=== PATIENT | male | born 2005 | race Hispanic/Latino ===

== ENCOUNTER 2024-09-20 09:26 | Emergency (ER) | payer OTHER ==
[~2024-09-20] VITALS: Ht 167.6 cm; Wt 100.0 kg
[~2024-09-20 09:26] MED LIST: CENTANY30 GM TOP; CEPHALEXIN500 M1 PO
[2024-09-20] MEDS ORDERED: CEPHALEXIN500 M1 PO (10:36)
[2024-09-20 10:50] VITALS: BP 118/76
== END 2024-09-20 10:51 | disposition home or self-care (01) ==
LOC: ED 09:26
DX: L05.91 Pilonidal cyst without abscess (principal); Z79.899 Other long term (current) drug therapy
CPT/HCPCS: 10060; 99282-25